=== PATIENT | female | born 1970 | race Caucasian/White ===

== ENCOUNTER 2019-04-05 22:07 | Emergency (ER) | payer BC ==
[~2019-04-05] VITALS: Ht 162.6 cm; Wt 104.3 kg
[2019-04-05 22:10] VITALS: BP_SYST 145
--- NOTE | 2019-04-05 22:25 | NUR ---
Patient to ER bed [facility] to [facility] for evaluation. Side rails up. Report given to HAJA VILLAFANA.
--- NOTE | 2019-04-05 22:37 | NUR ---
Patient is AAO x 4 and ambulatory complains of left lower back pain that started around Monday. Pt denies any trauma. Per patient, sometimes pain radiates down to leg but goes away. Pt denies N/V, fever. No other injuries/complaints per patient or noted.
--- NOTE | 2019-04-05 22:57 | NUR ---
ER Dr. Mata at bedside examining patient.
[2019-04-05] MEDS ORDERED: KETOROLAC TROMETHAMINE 60 MG/2 ML VIAL IM ONE (23:00)
[2019-04-05 23:20] LABS: BILIRUBIN,URINE NEGATIVE (NEGATIVE); CLARITY/URINE CLEAR (CLEAR); COLOR,URINE YELLOW (YELLOW); GLUCOSE,URINE NEGATIVE (NEGATIVE); KETONES,URINE NEGATIVE (NEGATIVE); LEUKOCYTE ESTERASE ,URINE TRACE (NEGATIVE); NITRITE, URINE POSITIVE (NEGATIVE); PH,URINE 5.5 (5.0-8.0); PROTEIN URINE NEGATIVE (NEGATIVE); UROBILINOGEN,URINE 0.2 (0.2-1.0)
[2019-04-05 23:22] LABS: BLOOD, URINE TRACE (NEGATIVE)
[2019-04-05 23:34] LABS: BACTERIA,URINE MANY /HPF (None Seen)
--- NOTE | 2019-04-05 23:58 | NUR ---
Medication was given, pt tolerated well. No adverse reaction, will continue to monitor.
[2019-04-06] MEDS ORDERED: cefTRIAXone 1 GM in LIDOCAINE 1%, 20 ML MDV 2.1 ML IM ONE ×2
[2019-04-06 00:16] VITALS: BP_SYST 136
--- NOTE | 2019-04-06 00:16 | NUR ---
Patient given written and verbal discharge instructions and verbalizes understanding. ER MD discussed with patient the results and treatment provided. Patient in stable condition. ID arm band removed. Rx of Ciprofloxacin and Naprosyn given. Patient educated on pain management and to follow up with PMD. Pain Scale 0. Opportunity for questions provided and answered. Medication side effect fact sheet provided.
== END 2019-04-06 00:16 | disposition home or self-care (01) ==
LOC: SED 22:07
DX: M54.5 Low back pain (principal); N39.0 Urinary tract infection, site not specified; Z88.2 Allergy status to sulfonamides; Z88.6 Allergy status to analgesic agent
CPT/HCPCS: 81000; 87086; 87186; 96372; 99283; J0696; J1885; J2001